=== PATIENT | male | born 1945 | race Caucasian/White ===

== ENCOUNTER 2018-09-06 11:55 | Emergency (ER) | payer MEDICARE, OTHER, SELFPAY ==
[2018-09-06 12:04] VITALS: BP 146/78; PULSE 88; RESP 14; O2SAT 99; BMI 57.1
--- NOTE | 2018-09-06 12:39 | ED.EYEPROB ---
HPI - Eye Problem <RICH Hicks - Last Filed: 09/06/18 22:37> General Chief complaint: Eye Problems Stated complaint: Pain behind rt eye, for a week Time Seen by Provider: 09/06/18 12:12 Source: patient Mode of arrival: ambulatory Limitations: no limitations History of Present Illness HPI Narrative: This is a 72-year-old nonsmoker who presents with intermittent a right posterior thigh dull aching pain with occasional throbbing discomfort which radiates to right temporal area for the last 7 days. He reports there is no vision change. He denies fever, chills, nausea, vomiting, or rash on temporal area. He has history of myasthenia gravis and at times he has difficulty with depth perception but denies any changes. He reports discomfort increases when he stares at the computer monitor. He uses reading cheater that was bought from the store. He has history of cataract remover by Dr. Hahn. He was seen by Ophthalmology surgeon yesterday for evaluation with normal exam and normal IOP. He also has history of melanoma and back which was removed. He initially visited walk-in clinic after he spoke with his cardiology nurse practitioner daughter and hoping to get CT test today and he was referred to the emergency department for further evaluation. He denies dysphagia, weakness to one side of body. He rates his pain as about 5/10. He usually gets his medical service at [facility]. Related Data Home Medications Medication Instructions Recorded Confirmed allopurinol 300 mg tablet 300 mg PO DAILY 10/10/17 09/06/18 atorvastatin 10 mg tablet 10 mg PO DAILY 10/10/17 09/06/18 lisinopril 20 mg tablet 20 mg PO DAILY 10/10/17 09/06/18 med for myasthenia gravis EYE-BOTH 10/10/17 09/06/18 Allergies Allergy/AdvReac Type Severity Reaction Status Date / Time ciprofloxacin [From Cipro] Allergy Verified 09/06/18 11:44 Review of Systems <RICH Hicks - Last Filed: 09/06/18 22:37> Review of Systems General: See HPI HEENT: See HPI. Denies sinus pain, ear pain, sore throat, difficulty swallowing, dizziness. Respiratory: Denies dyspnea, cough, wheezing, hemoptysis, sputum. Cardiovascular: Denies chest pain, palpitations, orthopnea, edema. Gastrointestinal: Denies nausea, vomiting, abdominal pain, diarrhea, constipation, melena. : Denies dysuria, frequency, incontinence, hematuria, urinary retention. Musculoskeletal: Denies weakness, joint pain or bony pain. Skin: Denies rash, skin lesions, or other. Neurologic: Denies weakness, headache, numbness, change in speech, confusion, seizures, incoordination. Psychiatric: No concerning psychosocial issues. 12-point review of systems is negative except for those stated above. PFSH <RICH Hicks - Last Filed: 09/06/18 22:37> Medical History HTN (hypertension) (Acute) Hyperlipemia (Acute) Myasthenia gravis (Acute) History of melanoma (Chronic) Surgical History History of cataract surgery (Resolved) Social History Smoking Status: Never smoker alcohol intake: current Social History Smoking Status: Never smoker alcohol intake: current Exam <RICH Hicks - Last Filed: 09/06/18 22:37> Narrative Exam Narrative: GEN: Alert, oriented x 3, well appearing and nourished, and in no acute distress. Head: Normal cephalic, atraumatic. No scalp or temporal tenderness, palpable mass or rash. EYES: Pupils are equal, round, and reactive to light and accommodation. Extraocular muscles are intact bilaterally. Redreflex present. There is no subconjunctival hemorrhage, exudate and sclera non-icteric, no injection. ENT: Bilateral auditory canals and tympanic membranes. Hearing grossly intact. Facial sinuses nontender to palpate. Mucous membrane moist, no mucosal lesion. Throat without erythema, tonsillar hypertrophy or exudate. Uvula in midline, airway patent. Neck: Trachea in midline. No JVD, non-tender without lymphadenopathy. No masses or thyroid megaly. Supple, non-tender and meningeal signs. CARDIAC: Normal regular rate and rhythm without murmurs, gallops, or rubs. No chest wall tenderness. No peripheral edema, cyanosis or pallor. Capillary refill is less than 2 seconds. No carotid bruits. RESPIRATORY: Lungs are cleat to auscultate bilaterally. No cough, wheezes, rales, or rhonchi. No stridor, respiratory distress, increase work of breathing, or accessary muscle used. ABD: Abdomen soft, nontender and non-distended. No guarding or rebound tenderness to palpate. Bowel sounds are normal in all 4 quadrants. There is no palpable masses or organomegaly. EXT: Full painless ROM of all extremities with no loss of sensation, strength, effusion or edema. SKIN: Warm, dry, normal color for patient. No erythema, lesions or rash. BACK: Nontender without deformity or crepitance. No flank tenderness. NEUROLOGICAL: Alert and oriented to place, time and person. No facial droops, dysphasia. CN II-XII intact. Strength and sensation symmetric and intact throughout. PSYCHIATRIC: Good judgement and reason, without hallucinations, abnormal affect or abnormal behaviors during the examination. Initial Vital Signs Initial Vital Signs: Vital Signs Pulse Rate 88 09/06/18 12:04 Respiratory Rate 14 09/06/18 12:04 Blood Pressure 146/78 H 09/06/18 12:04 Pulse Oximetry 99 09/06/18 12:04 <Saba Cervantes DO - Last Filed: 09/11/18 07:53> Initial Vital Signs Initial Vital Signs: Vital Signs Pulse Rate 88 09/06/18 12:04 Respiratory Rate 14 09/06/18 12:04 Blood Pressure 146/78 H 09/06/18 12:04 Pulse Oximetry 99 09/06/18 12:04 Course <RICH Hicks - Last Filed: 09/06/18 22:37> Course Narrative: Given eye symptoms and history of melanoma and myasthenia gravis, CT scan of the bilateral orbits with IV contrast were ordered to rule out globe abnormalty and CBC and BNP were ordered to screen for possible infection an discussed the plan with the patient and agreed with the plan. Orders Ordered: Discontinued Medications Proparacaine HCl (Parcaine 0.5% Ophth Lorraine) 2 drops EYE-BOTH NOW ONE Stop: 09/06/18 15:40 Vital Signs - 8 hr 09/06/18 12:04 Pulse Rate 88 Respiratory Rate 14 Blood Pressure 146/78 H Pulse Oximetry 99 <Saba Cervantes DO - Last Filed: 09/11/18 07:53> Orders Ordered: Discontinued Medications Proparacaine HCl (Parcaine 0.5% Ophth Lorraine) 2 drops EYE-BOTH NOW ONE Stop: 09/06/18 15:40 Vital Signs - 8 hr 09/06/18 12:04 Pulse Rate 88 Respiratory Rate 14 Blood Pressure 146/78 H Pulse Oximetry 99 MDM - Eye Problem <Ray [email or web address] - Last Filed: 09/06/18 22:37> Differential Diagnosis Likely periorbital cellulitis, glaucoma and other (retrobulbal mass or hematoma) Medical Records Attestation: I reviewed the patient's medical records. Lab Data Attestation: I reviewed the patient's lab results. Result diagrams: 09/06/18 13:20 09/06/18 13:20 Lab Results 09/06/18 09/06/18 Range/Units 13:20 13:20 WBC 5.2 (4.5-11.0) X10^3/uL RBC 4.49 L (4.5-5.9) X10^6/uL Hgb 14.4 (13.5-17.5) g/dL Hct 42.9 (41-53) % MCV 95.6 (80-100) fL MCH 32.2 (26-34) PG MCHC 33.7 (30-36) % RDW 12.9 (11.6-14.8) % Plt Count 190 (150-400) X10^3/uL Neut % (Auto) 59.1 (50-75) % Lymph % (Auto) 27.2 (25-40) % [place] % (Auto) 11.5 (3-14) % Eos % (Auto) 1.3 L (2-4) % Baso % (Auto) 0.9 (0-2) % Neut # (Auto) 3100 (7582-9820) /uL Lymph # (Auto) 1400 (6695-7964) /uL [place] # (Auto) 600 (0-900) /uL Eos # (Auto) 100 (0-450) /uL Baso # (Auto) 0 (0-100) /uL Sodium 138 (137-145) mmol/L Potassium 4.4 (3.4-5.1) mmol/L Chloride 103 (98-107) mmol/L Carbon Dioxide 25 (22-32) mmol/L BUN 20 (9-20) mg/dL Creatinine 1.00 (0.66-1.25) mg/dL Estimated GFR > 60.0 (>60) mL/min BUN/Creatinine Ratio 20.0 (6-22) Glucose 103 (80-110) mg/dL Calcium 8.8 (8.4-10.2) mg/dL Imaging Data CT-Orbital: Radiologist's impression: [address] [address] [address] Scan Report Signed Patient: Chau Rodriguez RMR#: [id number] : 5Acct:[id number] Age/Sex: 72 / MDate of Service: 09/06/18 Loc: ED Accession Number: [id number] Procedure: CT orbit BI w con Ordering Provider: Ray Olivier PROCEDURE: CT ORBIT BI W CON INDICATIONS: Posterior R eye pain for 1 week w/o vision change, scalp rash TECHNIQUE: After the administration of intravenous contrast, 2.5 mm axial images acquired through the orbits, with coronal and sagittal reformats. For radiation dose reduction, the following was used: automated exposure control, adjustment of mA and/or kV according to patient size. COMPARISON: None. FINDINGS: Image quality: Excellent. Orbits: Globes are symmetrical. The optic nerves are normal in size and enhancement. No retrobulbar masses or fat abnormalities. The extra-ocular muscles are normal and symmetrical in appearance. Lacrimal glands are normal. Optic chiasm is normal. Periorbital soft tissues are normal. Intracranial: The pituitary gland is normal, without sellar or suprasellar masses. Visualized cerebral hemispheres, brainstem, and spinal cord appear normal. Bones and sinuses: Visualized calvarium and facial bones appear intact. Visualized sinuses and mastoids are clear. IMPRESSION: 1. No acute intracranial findings or acute intraorbital findings to explain patient's right eye pain. Dictated by: Zena Mccauley M.D. on 09/06/2018 at 13:12 Approved by: Zena Mccauley M.D. on 09/06/2018 at 13:15 [facility] Narrative Medical decision making narrative: These 72-year-old gentleman who presents with right posterior eye pain which radiates to temporal area. He denies of any constitutional symptoms or rash on his temporal area. He has a history of melanoma, cataract surgery, myasthenia gravis which affected his vision and he follows up with a specialist routinely. He is not taking any medications for myasthenia gravis at this time. He was seen by Ophthalmology surgeon yesterday for evaluation for this pain and was told his vision, eye exam, an IOP were all normal. After speaking with his daughter who is a supervisor paste plant at , he was told to get imaging test for his symptoms and he presented to walk-in clinic. When he was told that CT could be arranged on Saturday, he decided to come to ER for an evaluation. CT scan was ordered for with IV contrast orbital. The globes were symmetrical, opting nerves were normal, there was no retrobulbar masses or fat and no abnormalities, extraocular muscles were normal and symmetrical. The optic chiasm was normal, also periorbital soft tissue mass or abnormal. His white count was normal and BNP was normal. No acute intracranial findings noted purse head CT. He has IOP on right eye was mildly elevated today in the ED. IOP in R eye was 28 and L eye was 23. The findings were shared with the patient. He was instructed to take [id number] Tylenol or an ibuprofen as needed for discomfort. Advised to follow up with the sap pp consultant next week. Patient also advised to take a frequent break while he is working on his computer and looking at the monitor. Patient states he will recheck his eye pressure with his sap pp consultant and also will get of prescriptive reading glasses. Patient has no further questions at this time and agrees with the plan of care. <Saba Cervantes, DO - Last Filed: 09/11/18 07:53> Lab Data Lab Results 09/06/18 09/06/18 Range/Units 13:20 13:20 WBC 5.2 (4.5-11.0) X10^3/uL RBC 4.49 L (4.5-5.9) X10^6/uL Hgb 14.4 (13.5-17.5) g/dL Hct 42.9 (41-53) % MCV 95.6 (80-100) fL MCH 32.2 (26-34) PG MCHC 33.7 (30-36) % RDW 12.9 (11.6-14.8) % Plt Count 190 (150-400) X10^3/uL Neut % (Auto) 59.1 (50-75) % Lymph % (Auto) 27.2 (25-40) % [place] % (Auto) 11.5 (3-14) % Eos % (Auto) 1.3 L (2-4) % Baso % (Auto) 0.9 (0-2) % Neut # (Auto) 3100 (3941-4304) /uL Lymph # (Auto) 1400 (9655-2659) /uL [place] # (Auto) 600 (0-900) /uL Eos # (Auto) 100 (0-450) /uL Baso # (Auto) 0 (0-100) /uL Sodium 138 (137-145) mmol/L Potassium 4.4 (3.4-5.1) mmol/L Chloride 103 (98-107) mmol/L Carbon Dioxide 25 (22-32) mmol/L BUN 20 (9-20) mg/dL Creatinine 1.00 (0.66-1.25) mg/dL Estimated GFR > 60.0 (>60) mL/min BUN/Creatinine Ratio 20.0 (6-22) Glucose 103 (80-110) mg/dL Calcium 8.8 (8.4-10.2) mg/dL Discharge Plan Departure Patient Disposition: Home Clinical Impression: Acute right eye pain, Eye strain Discharge Date/Time: 09/06/18 15:43 Interventions: ED Discharge Assessment Last Done: 09/06/18 15:42 Instructions: DI for Eye Pain Activity Restrictions/Additional Instructions: You have been diagnosed with [ eye pain and strain on right eye ]. What to do: *Take your medications as directed. No new prescription to home but you could take [id number] Tylenol and/or Motrin as needed for discomfort. *Follow up with your primary care provider and your opthalmologist in next 2-3 days for revaluation. Please call for an appointment. Let them know you were seen in the ED and that we asked you to be seen in follow up. *Return to ED if you have any new, worsening, or concerning symptoms, such as [severe headache, vision trouble, rash on your temporal area, chest pain, fever, breathing, any acute worsening]. Prescriptions: No Action atorvastatin 10 mg tablet 10 mg PO DAILY RF: 0 lisinopril 20 mg tablet 20 mg PO DAILY RF: 0 allopurinol 300 mg tablet 300 mg PO DAILY RF: 0 med for myasthenia gravis EYE-BOTH RF: 0 <Saba Cervantes DO - Last Filed: 09/11/18 07:53> Cosign ED Attending David Attestation: I was immediately available in the department for consultation. Documentation has been reviewed. I agree with assessment and plan.
[2018-09-06 13:31] LABS: Add Manual Diff / Slide Review NO; Basophils Absolute Auto 0 /uL (0-100); Basophils Percent Auto 0.9 % (0-2); Eosinophils Absolute Auto 100 /uL (0-450); Eosinophils Percent Auto 1.3 % (2-4); Hematocrit 42.9 % (41-53); Hemoglobin 14.4 g/dL (13.5-17.5); Lymphocytes Absolute Auto 1400 /uL (1100-4500); Lymphocytes Percent Auto 27.2 % (25-40); Mean Corpuscular HGB Conc 33.7 % (30-36); Mean Corpuscular Hemoglobin 32.2 PG (26-34); Mean Corpuscular Volume 95.6 fL (80-100); Monocytes Absolute Auto 600 /uL (0-900); Monocytes Percent Auto 11.5 % (3-14); Neutrophils Absolute Auto 3100 /uL (1500-7000); Neutrophils Percent Auto 59.1 % (50-75); Platelet Count 190 X10^3/uL (150-400); Red Blood Cell Count 4.49 X10^6/uL (4.5-5.9); Red Cell Distribution Width 12.9 % (11.6-14.8); White Blood Cell Count 5.2 X10^3/uL (4.5-11.0)
[2018-09-06 13:42] LABS: Blood Urea Nitrogen 20 mg/dL (9-20); Calcium 8.8 mg/dL (8.4-10.2); Carbon Dioxide 25 mmol/L (22-32); Chloride 103 mmol/L (98-107); Estimated Glomerular Filt Rate > 60.0 mL/min (>60); Glucose 103 mg/dL (80-110); HEMOLYSIS 49 (0-50); Potassium 4.4 mmol/L (3.4-5.1); Sodium 138 mmol/L (137-145)
--- NOTE | 2018-09-06 14:58 | ED_ITS ---
HPI - Eye Problem <RICH Hicks - Last Filed: 09/06/18 22:37> General Chief complaint: Eye Problems Stated complaint: Pain behind rt eye, for a week Time Seen by Provider: 09/06/18 12:12 Source: patient Mode of arrival: ambulatory Limitations: no limitations History of Present Illness HPI Narrative: This is a 72-year-old nonsmoker who presents with intermittent a right posterior thigh dull aching pain with occasional throbbing discomfort which radiates to right temporal area for the last 7 days. He reports there is no vision change. He denies fever, chills, nausea, vomiting, or rash on temporal area. He has history of myasthenia gravis and at times he has difficulty with depth perception but denies any changes. He reports discomfort increases when he stares at the computer monitor. He uses reading cheater that was bought from the store. He has history of cataract remover by Dr. Hahn. He was seen by Ophthalmology surgeon yesterday for evaluation with normal exam and normal IOP. He also has history of melanoma and back which was removed. He initially visited walk-in clinic after he spoke with his cardiology nurse practitioner daughter and hoping to get CT test today and he was referred to the emergency department for further evaluation. He denies dysphagia, weakness to one side of body. He rates his pain as about 5/10. He usually gets his medical service at [facility]. Related Data Home Medications Medication Instructions Recorded Confirmed allopurinol 300 mg tablet 300 mg PO DAILY 10/10/17 09/06/18 atorvastatin 10 mg tablet 10 mg PO DAILY 10/10/17 09/06/18 lisinopril 20 mg tablet 20 mg PO DAILY 10/10/17 09/06/18 med for myasthenia gravis EYE-BOTH 10/10/17 09/06/18 Allergies Allergy/AdvReac Type Severity Reaction Status Date / Time ciprofloxacin [From Cipro] Allergy Verified 09/06/18 11:44 Review of Systems <RICH Hicks - Last Filed: 09/06/18 22:37> Review of Systems General: See HPI HEENT: See HPI. Denies sinus pain, ear pain, sore throat, difficulty swallowing, dizziness. Respiratory: Denies dyspnea, cough, wheezing, hemoptysis, sputum. Cardiovascular: Denies chest pain, palpitations, orthopnea, edema. Gastrointestinal: Denies nausea, vomiting, abdominal pain, diarrhea, constipation, melena. : Denies dysuria, frequency, incontinence, hematuria, urinary retention. Musculoskeletal: Denies weakness, joint pain or bony pain. Skin: Denies rash, skin lesions, or other. Neurologic: Denies weakness, headache, numbness, change in speech, confusion, seizures, incoordination. Psychiatric: No concerning psychosocial issues. 12-point review of systems is negative except for those stated above. PFSH <RICH Hicks - Last Filed: 09/06/18 22:37> Medical History HTN (hypertension) (Acute) Hyperlipemia (Acute) Myasthenia gravis (Acute) History of melanoma (Chronic) Surgical History History of cataract surgery (Resolved) Social History Smoking Status: Never smoker alcohol intake: current Social History Smoking Status: Never smoker alcohol intake: current Exam <RICH Hicks - Last Filed: 09/06/18 22:37> Narrative Exam Narrative: GEN: Alert, oriented x 3, well appearing and nourished, and in no acute distress. Head: Normal cephalic, atraumatic. No scalp or temporal tenderness, palpable mass or rash. EYES: Pupils are equal, round, and reactive to light and accommodation. Extraocular muscles are intact bilaterally. Redreflex present. There is no subconjunctival hemorrhage, exudate and sclera non-icteric, no injection. ENT: Bilateral auditory canals and tympanic membranes. Hearing grossly intact. Facial sinuses nontender to palpate. Mucous membrane moist, no mucosal lesion. Throat without erythema, tonsillar hypertrophy or exudate. Uvula in midline, airway patent. Neck: Trachea in midline. No JVD, non-tender without lymphadenopathy. No masses or thyroid megaly. Supple, non-tender and meningeal signs. CARDIAC: Normal regular rate and rhythm without murmurs, gallops, or rubs. No chest wall tenderness. No peripheral edema, cyanosis or pallor. Capillary refill is less than 2 seconds. No carotid bruits. RESPIRATORY: Lungs are cleat to auscultate bilaterally. No cough, wheezes, rales, or rhonchi. No stridor, respiratory distress, increase work of breathing, or accessary muscle used. ABD: Abdomen soft, nontender and non-distended. No guarding or rebound tenderness to palpate. Bowel sounds are normal in all 4 quadrants. There is no palpable masses or organomegaly. EXT: Full painless ROM of all extremities with no loss of sensation, strength, effusion or edema. SKIN: Warm, dry, normal color for patient. No erythema, lesions or rash. BACK: Nontender without deformity or crepitance. No flank tenderness. NEUROLOGICAL: Alert and oriented to place, time and person. No facial droops, dysphasia. CN II-XII intact. Strength and sensation symmetric and intact throughout. PSYCHIATRIC: Good judgement and reason, without hallucinations, abnormal affect or abnormal behaviors during the examination. Initial Vital Signs Initial Vital Signs: Vital Signs Pulse Rate 88 09/06/18 12:04 Respiratory Rate 14 09/06/18 12:04 Blood Pressure 146/78 H 09/06/18 12:04 Pulse Oximetry 99 09/06/18 12:04 <Saba Cervantes DO - Last Filed: 09/11/18 07:53> Initial Vital Signs Initial Vital Signs: Vital Signs Pulse Rate 88 09/06/18 12:04 Respiratory Rate 14 09/06/18 12:04 Blood Pressure 146/78 H 09/06/18 12:04 Pulse Oximetry 99 09/06/18 12:04 Course <RICH Hicks - Last Filed: 09/06/18 22:37> Course Narrative: Given eye symptoms and history of melanoma and myasthenia gravis, CT scan of the bilateral orbits with IV contrast were ordered to rule out globe abnormalty and CBC and BNP were ordered to screen for possible infection an discussed the plan with the patient and agreed with the plan. Orders Ordered: Discontinued Medications Proparacaine HCl (Parcaine 0.5% Ophth Lorraine) 2 drops EYE-BOTH NOW ONE Stop: 09/06/18 15:40 Vital Signs - 8 hr 09/06/18 12:04 Pulse Rate 88 Respiratory Rate 14 Blood Pressure 146/78 H Pulse Oximetry 99 <Saba Cervantes DO - Last Filed: 09/11/18 07:53> Orders Ordered: Discontinued Medications Proparacaine HCl (Parcaine 0.5% Ophth Lorraine) 2 drops EYE-BOTH NOW ONE Stop: 09/06/18 15:40 Vital Signs - 8 hr 09/06/18 12:04 Pulse Rate 88 Respiratory Rate 14 Blood Pressure 146/78 H Pulse Oximetry 99 MDM - Eye Problem <Ray [email or web address] - Last Filed: 09/06/18 22:37> Differential Diagnosis Likely periorbital cellulitis, glaucoma and other (retrobulbal mass or hematoma) Medical Records Attestation: I reviewed the patient's medical records. Lab Data Attestation: I reviewed the patient's lab results. Result diagrams: 09/06/18 13:20 09/06/18 13:20 Lab Results 09/06/18 09/06/18 Range/Units 13:20 13:20 WBC 5.2 (4.5-11.0) X10^3/uL RBC 4.49 L (4.5-5.9) X10^6/uL Hgb 14.4 (13.5-17.5) g/dL Hct 42.9 (41-53) % MCV 95.6 (80-100) fL MCH 32.2 (26-34) PG MCHC 33.7 (30-36) % RDW 12.9 (11.6-14.8) % Plt Count 190 (150-400) X10^3/uL Neut % (Auto) 59.1 (50-75) % Lymph % (Auto) 27.2 (25-40) % [place] % (Auto) 11.5 (3-14) % Eos % (Auto) 1.3 L (2-4) % Baso % (Auto) 0.9 (0-2) % Neut # (Auto) 3100 (5536-8480) /uL Lymph # (Auto) 1400 (5286-2806) /uL [place] # (Auto) 600 (0-900) /uL Eos # (Auto) 100 (0-450) /uL Baso # (Auto) 0 (0-100) /uL Sodium 138 (137-145) mmol/L Potassium 4.4 (3.4-5.1) mmol/L Chloride 103 (98-107) mmol/L Carbon Dioxide 25 (22-32) mmol/L BUN 20 (9-20) mg/dL Creatinine 1.00 (0.66-1.25) mg/dL Estimated GFR > 60.0 (>60) mL/min BUN/Creatinine Ratio 20.0 (6-22) Glucose 103 (80-110) mg/dL Calcium 8.8 (8.4-10.2) mg/dL Imaging Data CT-Orbital: Radiologist's impression: [address] [address] [address] Scan Report Signed Patient: Chau Rodriguez RMR#: [id number] : 5Acct:[id number] Age/Sex: 72 / MDate of Service: 09/06/18 Loc: ED Accession Number: [id number] Procedure: CT orbit BI w con Ordering Provider: Ray Olivier PROCEDURE: CT ORBIT BI W CON INDICATIONS: Posterior R eye pain for 1 week w/o vision change, scalp rash TECHNIQUE: After the administration of intravenous contrast, 2.5 mm axial images acquired through the orbits, with coronal and sagittal reformats. For radiation dose reduction, the following was used: automated exposure control, adjustment of mA and/or kV according to patient size. COMPARISON: None. FINDINGS: Image quality: Excellent. Orbits: Globes are symmetrical. The optic nerves are normal in size and enhancement. No retrobulbar masses or fat abnormalities. The extra-ocular muscles are normal and symmetrical in appearance. Lacrimal glands are normal. Optic chiasm is normal. Periorbital soft tissues are normal. Intracranial: The pituitary gland is normal, without sellar or suprasellar masses. Visualized cerebral hemispheres, brainstem, and spinal cord appear normal. Bones and sinuses: Visualized calvarium and facial bones appear intact. Visualized sinuses and mastoids are clear. IMPRESSION: 1. No acute intracranial findings or acute intraorbital findings to explain patient's right eye pain. Dictated by: Zena Mccauley M.D. on 09/06/2018 at 13:12 Approved by: Zena Mccauley M.D. on 09/06/2018 at 13:15 [facility] Narrative Medical decision making narrative: These 72-year-old gentleman who presents with right posterior eye pain which radiates to temporal area. He denies of any constitutional symptoms or rash on his temporal area. He has a history of melanoma, cataract surgery, myasthenia gravis which affected his vision and he follows up with a specialist routinely. He is not taking any medications for myasthenia gravis at this time. He was seen by Ophthalmology surgeon yesterday for evaluation for this pain and was told his vision, eye exam, an IOP were all normal. After speaking with his daughter who is a metal fabricator apprentice at , he was told to get imaging test for his symptoms and he presented to walk-in clinic. When he was told that CT could be arranged on Saturday, he decided to come to ER for an evaluation. CT scan was ordered for with IV contrast orbital. The globes were symmetrical, opting nerves were normal, there was no retrobulbar masses or fat and no abnormalities, extraocular muscles were normal and s ymmetrical. The optic chiasm was normal, also periorbital soft tissue mass or abnormal. His white count was normal and BNP was normal. No acute intracranial findings noted purse head CT. He has IOP on right eye was mildly elevated today in the ED. IOP in R eye was 28 and L eye was 23. The findings were shared with the patient. He was instructed to take [id number] Tylenol or an ibuprofen as needed for discomfort. Advised to follow up with the sales clerk next week. Patient also advised to take a frequent break while he is working on his computer and looking at the monitor. Patient states he will recheck his eye pressure with his sales clerk and also will get of prescriptive reading glasses. Patient has no further questions at this time and agrees with the plan of care. <Saba Cervantes, DO - Last Filed: 09/11/18 07:53> Lab Data Lab Results 09/06/18 09/06/18 Range/Units 13:20 13:20 WBC 5.2 (4.5-11.0) X10^3/uL RBC 4.49 L (4.5-5.9) X10^6/uL Hgb 14.4 (13.5-17.5) g/dL Hct 42.9 (41-53) % MCV 95.6 (80-100) fL MCH 32.2 (26-34) PG MCHC 33.7 (30-36) % RDW 12.9 (11.6-14.8) % Plt Count 190 (150-400) X10^3/uL Neut % (Auto) 59.1 (50-75) % Lymph % (Auto) 27.2 (25-40) % [place] % (Auto) 11.5 (3-14) % Eos % (Auto) 1.3 L (2-4) % Baso % (Auto) 0.9 (0-2) % Neut # (Auto) 3100 (3948-2206) /uL Lymph # (Auto) 1400 (7252-3447) /uL [place] # (Auto) 600 (0-900) /uL Eos # (Auto) 100 (0-450) /uL Baso # (Auto) 0 (0-100) /uL Sodium 138 (137-145) mmol/L Potassium 4.4 (3.4-5.1) mmol/L Chloride 103 (98-107) mmol/L Carbon Dioxide 25 (22-32) mmol/L BUN 20 (9-20) mg/dL Creatinine 1.00 (0.66-1.25) mg/dL Estimated GFR > 60.0 (>60) mL/min BUN/Creatinine Ratio 20.0 (6-22) Glucose 103 (80-110) mg/dL Calcium 8.8 (8.4-10.2) mg/dL Discharge Plan Departure Patient Disposition: Home Clinical Impression: Acute right eye pain, Eye strain Discharge Date/Time: 09/06/18 15:43 Interventions: ED Discharge Assessment Last Done: 09/06/18 15:42 Instructions: DI for Eye Pain Activity Restrictions/Additional Instructions: You have been diagnosed with [ eye pain and strain on right eye ]. What to do: *Take your medications as directed. No new prescription to home but you could take [id number] Tylenol and/or Motrin as needed for discomfort. *Follow up with your primary care provider and your opthalmologist in next 2-3 days for revaluation. Please call for an appointment. Let them know you were seen in the ED and that we asked you to be seen in follow up. *Return to ED if you have any new, worsening, or concerning symptoms, such as [severe headache, vision trouble, rash on your temporal area, chest pain, fever, breathing, any acute worsening]. Prescriptions: No Action atorvastatin 10 mg tablet 10 mg PO DAILY RF: 0 lisinopril 20 mg tablet 20 mg PO DAILY RF: 0 allopurinol 300 mg tablet 300 mg PO DAILY RF: 0 med for myasthenia gravis EYE-BOTH RF: 0 <Saba Cervantes DO - Last Filed: 09/11/18 07:53> Cosign ED Attending Eligioature Attestation: I was immediately available in the department for consultation. Documentation has been reviewed. I agree with assessment and plan.
== END 2018-09-06 15:43 | disposition home or self-care (01) ==
PROVIDERS: Emergency Provider Nurse Practitioner Family
DX: H57.11 Ocular pain, right eye (principal); H53.10 Unspecified subjective visual disturbances
CPT/HCPCS: 36415; 70481; 80048; 85025; 99282; 99284; Q9967

== ENCOUNTER → 2018-10-16 11:09 | Outpatient (CLI) | payer MEDICARE, OTHER, SELFPAY ==
[2018-10-16 12:36] LABS: Alanine Aminotransferase 31 IU/L (21-72); Albumin 4.3 g/dL (3.5-5.0); Albumin Globulin Ratio 1.6 (1.0-2.8); Alkaline Phosphatase 64 U/L (38-126); Aspartate Aminotransferase 28 IU/L (17-59); Bilirubin Total 0.5 mg/dL (0.2-1.3); Blood Urea Nitrogen 16 mg/dL (9-20); Calcium 9.4 mg/dL (8.4-10.2); Carbon Dioxide 26 mmol/L (22-32); Chloride 100 mmol/L (98-107); Estimated Glomerular Filt Rate > 60.0 mL/min (>60); Globulin 2.7 g/dL (1.7-4.1); Glucose 94 mg/dL (80-110); HEMOLYSIS < 15 (0-50); Potassium 4.4 mmol/L (3.4-5.1); Sodium 137 mmol/L (137-145)
[2018-10-16 12:41] LABS: Add Manual Diff / Slide Review NO; Basophils Absolute Auto 100 /uL (0-100); Eosinophils Absolute Auto 100 /uL (0-450); Eosinophils Percent Auto 2.4 % (2-4); Hematocrit 42.6 % (41-53); Hemoglobin 14.8 g/dL (13.5-17.5); Lymphocytes Absolute Auto 1900 /uL (1100-4500); Lymphocytes Percent Auto 29.8 % (25-40); Mean Corpuscular HGB Conc 34.8 % (30-36); Mean Corpuscular Volume 94.7 fL (80-100); Monocytes Absolute Auto 700 /uL (0-900); Monocytes Percent Auto 10.5 % (3-14); Neutrophils Absolute Auto 3500 /uL (1500-7000); Neutrophils Percent Auto 56.3 % (50-75); Platelet Count 200 X10^3/uL (150-400); Red Cell Distribution Width 12.9 % (11.6-14.8); White Blood Cell Count 6.2 X10^3/uL (4.5-11.0)
== END ==
PROVIDERS: Visit Provider Psychiatry & Neurology Neurology
DX: G70.00 Myasthenia gravis without (acute) exacerbation (principal); Z79.899 Other long term (current) drug therapy
CPT/HCPCS: 36415; 80053; 85025